=== PATIENT | male | born 2000 | race Caucasian/White ===

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

== ENCOUNTER 2018-08-21 21:08 | Emergency (ER) | payer SELFPAY ==
[~2018-08-21] VITALS: Wt 60.0 kg
[~2018-08-21 21:08] MED LIST: CYCL5TAB PO; D-ME473S2 PO
[2018-08-22] MEDS ORDERED: IBUPROFEN 600 MG TAB PO ONE (00:30)
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
[2018-08-22] MEDS ORDERED: NAPR-985 PO (01:54)
[2018-08-22] MEDS ORDERED: CYCL10TA7 PO (01:54)
[2018-08-22 02:21] VITALS: BP 118/67; PULSE 57; RESP 18
== END 2018-08-22 02:20 | disposition home or self-care (01) ==
LOC: E/R 21:08 → FTE 08-22 02:20
DX: M25.551 Pain in right hip (principal); R07.81 Pleurodynia; M25.562 Pain in left knee
CPT/HCPCS: 71100; 73510; 73562